=== PATIENT | female | born 1980 | race Caucasian/White ===

== ENCOUNTER 2020-10-27 18:29 | Emergency (ER) | payer OTHER ==
[~2020-10-27] VITALS: Ht 165.1 cm; Wt 110.7 kg
[2020-10-27] MEDS ORDERED: LISINOPRIL10 MG PO (18:48)
[2020-10-27] MEDS ORDERED: PROAIR HFA8.5 GM INH (18:48)
[2020-10-27] MEDS ORDERED: DAYVIGO5 MG PO (18:48)
[2020-10-27] MEDS ORDERED: DORYX MPC120 MG PO (18:48)
[2020-10-27] MEDS ORDERED: HYDROCHLOROTHIA25 M1 PO (18:48)
[2020-10-27] MEDS ORDERED: PREDNISONE 20 M20 MG PO (18:49)
[2020-10-27] MEDS ORDERED: TOPROL XL50 MG PO (18:49)
[2020-10-27] MEDS ORDERED: MONTELUKAST SODI4 M1 PO (18:49)
[2020-10-27 19:05] LABS: HEMOGLOBIN 13.1 gm/dL (12.0-15.0); MCV 86.9 fL (80.0-100.0); RDW-CV 14.5 % (10.5-14.5)
[2020-10-27 19:06] LABS: ABSOLUTE LYMPHOCYTES 0.9 thou/uL (0.8-5.3); ABSOLUTE MONOCYTES 0.3 thou/uL (0.0-1.2); ABSOLUTE NEUTROPHILS 5.7 thou/uL (1.6-8.1); BASOPHILS 0.7 %; EOSINOPHILS 0.1 %; HEMATOCRIT 37.5 % (37.0-47.0); LYMPHOCYTES 13.1 %; MCH 30.4 pg (26.0-34.0); MONOCYTES 4.6 %; MPV 8.3 fl. (7.2-11.1); NUCLEATED RBCS 0 /100WBC; PLATELET COUNT* 248 thou/uL (150-400); POLYS 81.5 %; RBC 4.31 mil/uL (4.20-5.00)
[2020-10-27 19:21] LABS: CALCIUM 8.2 mg/dL (8.5-10.1); CREATININE 1.2 mg/dL (0.6-1.3); POTASSIUM 3.2 mmol/L (3.5-5.1)
[2020-10-27 19:25] LABS: ALBUMIN 3.6 g/dL (3.4-5.0); TOTAL BILIRUBIN 0.7 mg/dL (<0.1-1.0); TOTAL PROTEIN 8.1 g/dL (6.4-8.2)
[2020-10-27] MEDS ORDERED: VISTARIL 25 MG25 M1 PO (19:44)
[2020-10-27] MEDS ORDERED: XANAX 0.5 MG0.5 MG PO (21:22)
[2020-10-27 21:27] VITALS: BP 142/65
--- NOTE | 2020-10-28 13:59 | EKG ---
[place] [address] ELECTROCARDIOGRAM REPORT Name: LUX HERNANDEZ Room: [facility]#: [id number] Admission: 10/27/20 Attend Phys: Discharge: 10/27/20 Date of : 80 Date of Service: 10/27/201940 Report #: [id number] THIS REPORT FOR: //name// [facility] ED Test Date: 2020-10-27 Test Time: 19:41:56 Pat Name: LUX HERNANDEZ Department: Room: Gender: Supervisor [employer]: [facility] : 1980 Requested By: Otis Escudero Order Number: [id number] MD: Ty Kamara Measurements Intervals [place] Rate: 94 P: 22 [place]: 157 QRS: 27 QRSD: 82 T: 24 QT: 361 QTc: 452 Interpretive Statements Sinus rhythm Abnormal R-wave progression, early transition No previous ECG available for comparison Electronically Signed On 10-28-2020 13:59:21 CDT by Ty Kamara [email or web address] <ELECTRONICALLY SIGNED> By: Ty Kamara MD, [facility] 10/28/20 1359 40 40 Ty Kamara MD, FACC /EPI
== END 2020-10-27 21:28 | disposition home or self-care (01) ==
LOC: M.ERS 18:29
PROVIDERS: Physician Assistant
DX: U07.1 COVID-19 (principal); J18.9 Pneumonia, unspecified organism; F41.9 Anxiety disorder, unspecified